=== PATIENT | female | born 1975 | race Caucasian/White ===

== ENCOUNTER 2018-08-22 20:32 | Emergency (ER) | payer OTHER, MEDICAID ==
[~2018-08-22] VITALS: Ht 160 cm; Wt 84.8 kg
--- NOTE | 2018-08-22 20:52 | PHYS DOC ---
Past Medical History Additional Past Medical Histor: degenerative disc disease, arthritis, PTSD, depression, anxiety, migraine h Adult General Chief Complaint Chief Complaint: HEADACHE HPI HPI Patient is a 42-year-old female who presents to the emergency department for evaluation. She states that earlier today, she began developing a mild headache , which has gradually worsened, and states that this headache is exactly the same as the prior migraines headaches she has had in the past. The headache did not begin abruptly, and is not "the worst headache of her life". She has had several episodes of vomiting and reports some photophobia. She has not had any neck stiffness, fever, numbness, weakness, or vision changes. Other than as stated above, there are no alleviating or exacerbating factors to the patient's symptoms. She states that she has had migraine headaches for many years, but they do not occur often enough for her to be placed on migraine medication, according to her PCP. Patients states that when she develops symptoms like this , her anxiety seems to get worse, and she feels anxious at this time. Review of Systems Review of Systems Constitutional: Denies fever or chills [] Eyes: Denies change in visual acuity, redness, or eye pain [] HENT: Denies nasal congestion or sore throat [] Respiratory: Denies cough or shortness of breath [] Cardiovascular: No additional information not addressed in HPI [] GI: Denies abdominal pain, bloody stools or diarrhea [] : Denies dysuria or hematuria [] Musculoskeletal: Denies back pain or joint pain [] Integument: Denies rash or skin lesions [] Neurologic: Denies focal weakness or sensory changes [] Endocrine: Denies polyuria or polydipsia [] All other systems were reviewed and found to be within normal limits, except as documented in this note. Current Medications Current Medications Current Medications Medications (Trade) Dose Ordered Sig/Shahriar Start Time Stop Time Status Last Admin Dose Admin Diphenhydramine HCl (Benadryl) 25 mg 1X ONCE 08/22/18 21:15 08/22/18 21:16 DC 08/22/18 21:06 25 MG Ketorolac Tromethamine (Toradol 30mg Vial) 30 mg 1X ONCE 08/22/18 21:15 08/22/18 21:16 DC 08/22/18 21:07 30 MG Prochlorperazine Edisylate (Compazine) 10 mg 1X ONCE 08/22/18 21:15 08/22/18 21:16 DC 08/22/18 21:04 10 MG Sodium Chloride 1,000 ml @ 1,000 mls/hr 1X ONCE 08/22/18 21:00 08/22/18 21:59 08/22/18 21:05 1,000 MLS/HR Allergies Allergies Allergies Coded Allergies Type Severity Reaction Last Updated Verified Penicillins Allergy Intermediate 08/22/18 Yes Physical Exam Physical Exam PHYSICAL EXAM: CONSTITUTIONAL: Well developed, well nourished HEAD: normocephalic, atraumatic EENT: PERRL, EOMI. Conjunctivae normal color, sclerae non-icteric; moist mucous membranes. NECK: Supple, non-tender; no meningismus. LUNGS: Lungs CTA, breathing even and unlabored. Normal air movement. HEART: Regular rate and rhythm, no murmur CHEST: No deformity; non-tender ABDOMEN: The abdomen is soft, and non-tender, no masses or bruits. EXTREM: Normal ROM; no deformity, no calf tenderness. Normal pulses palpable in all extremities. There is no pedal edema. SKIN: No rash; no diaphoresis NEURO: Alert; normal speech and cognition; CN's grossly intact; strength grossly intact without focal deficit. BACK: No CVA TTP. Current Patient Data Vital Signs Vital Signs Date Time Temp Pulse Resp B/P (MAP) Pulse Ox O2 Delivery O2 Flow Rate FiO2 08/22/18 21:25 81 100 08/22/18 20:35 97.7 19 147/87 (107) Room Air 97.7 EKG EKG [] Radiology/Procedures Radiology/Procedures [] Course & Med Decision Making Course & Med Decision Making 10:00 PM: The patient's condition remained stable, her headache has resolved. She is feeling better. I discussed the importance of close PCP follow-up and return precautions. Dragon Disclaimer Dragon Disclaimer This electronic medical record was generated, in whole or in part, using a voice recognition dictation system. Departure Departure Impression: Primary Impression: Migraine headache Disposition: HOME, SELF-CARE Condition: STABLE Patient Instructions: Migraine Headache IGOR MAYA MD Aug 22, 2018 20:52
[2018-08-22] MEDS ORDERED: IV NORMAL SALINE 1000ML BAG 1,000 ML IV ONE (21:00)
[2018-08-22] MEDS ORDERED: diphenhydrAMINE 50 MG/ML VIAL IVP ONE (21:15)
[2018-08-22] MEDS ORDERED: PROCHLORPERAZINE 10 MG/2 ML VIAL. IV ONE (21:15)
[2018-08-22] MEDS ORDERED: KETOROLAC 30 MG/ML VIAL. IV ONE (21:15)
[2018-08-22 21:55] VITALS: BP 139/70
== END 2018-08-22 22:05 | disposition home or self-care (01) ==
LOC: ER 20:32
DX: G43.909 Migraine, unspecified, not intractable, without status migrainosus (principal); R11.10 Vomiting, unspecified; F41.9 Anxiety disorder, unspecified; F32.9 Major depressive disorder, single episode, unspecified; F43.10 Post-traumatic stress disorder, unspecified; Z88.0 Allergy status to penicillin
CPT/HCPCS: 96361; 96374; 96375; 99283; J0780; J1200; J1885; J7030